=== PATIENT | female | born 1945 | race Caucasian/White ===

== ENCOUNTER 2018-02-17 16:27 | Observation (INO) ==
[2018-02-17 16:52] LABS: Baso # (Auto) 0.3 th/mm3 (0.0-0.2); Baso % (Auto) 4.8 % (0.0-2.0); Eos # (Auto) 0.2 th/mm3 (0.0-0.4); Eos % (Auto) 2.2 % (0.0-4.0); Hemoglobin 12.5 gm/dL (11.6-15.3); Lymph # (Auto) 2.3 th/mm3 (1.0-4.8); Lymph % (Auto) 32.1 % (9.0-44.0); Mean Corpuscular HGB Conc 33.7 % (32.0-36.0); Mean Corpuscular Hemoglobin 32.3 pg (27.0-34.0); Mean Corpuscular Volume 95.9 fL (80.0-100.0); Mean Platelet Volume 8.3 fL (7.0-11.0); Mono # (Auto) 0.5 th/mm3 (0.0-0.9); Mono % (Auto) 7.3 % (0.0-8.0); Neut # (Auto) 3.8 th/mm3 (1.8-7.7); Neut % (Auto) 53.6 % (16.0-70.0); Platelet Count 224 th/mm3 (150-450); Red Blood Count 3.86 mil/mm3 (4.00-5.30); Red Cell Distribution Width 13.6 % (11.6-17.2); White Blood Count 7.1 th/mm3 (4.0-11.0)
--- NOTE | 2018-02-17 17:02 | ED ---
HPI General Chief complaint: Chest Pain Stated complaint: Chest pain Time Seen by Provider: 02/17/18 16:30 Source: patient Mode of arrival: EMS Limitations: no limitations History of Present Illness HPI narrative: Patient is a 73 year old female brought in by EMS with complaints of chest pain. She says it started today while she was crafting. She says the pain is in the left side of her chest and is a "burning pain." She says it has happened in the past and she thought it was associated with anxiety, however, today it was different because she was completely relaxed. She says last night she seemed to be belching much more often. She has had generalized weakness for the past week. She denies fever or chills, cough or cold, nausea or vomiting. Severity is mild to moderate. Related Data Home Medications Medication Instructions Recorded Confirmed lisinopril 2.5 mg PO DAILY 02/17/18 02/17/18 Allergies Allergy/AdvReac Type Severity Reaction Status Date / Time codeine Allergy Severe GASTROENTER Verified 02/17/18 16:40 ITIS erythromycin base Allergy Severe VOMITING Verified 02/17/18 16:40 epinephrine Allergy Unknown A-fib Verified 02/17/18 16:40 azithromycin AdvReac Severe VOMITTING Verified 02/17/18 16:40 "VIOLENTLY" Tetanus Vaccines and Toxoid AdvReac Severe Hives Verified 02/17/18 16:40 "most antibiotics" Allergy Unknown Gastrointestinal Uncoded 02/17/18 16:40 Upset ashagwanda "supplement" AdvReac Unknown damage to Uncoded 08/28/16 13:18 right eye Review of Systems ROS: all other systems reviewed are negative Constitutional Denies chills and Denies fever(s) Cardiovascular Reports chest pain, Reports lightheadedness and Denies dyspnea Respiratory Denies cough Gastrointestinal Denies abdominal pain, Denies nausea and Denies vomiting Musculoskeletal Denies myalgias and Denies arthralgias Integumentary/Breasts Denies sores and Denies wounds Neurologic Denies focal weakness and Denies numbness [facility] Medical History Medical History Anxiety (Acute) Hx of hysterectomy (Acute) Surgical History Surgical History Hx of tonsillectomy (Acute) Social History Social History Substance History: No History of Abuse Second Hand Smoke Exposure: No Smoking Status: Unknown if ever smoked How Often Do You Have a Drink Containing Alcohol: Monthly or less Recent Travel in [facility] within the Last 8 Weeks: No Recent Out of Country Travel within the Last 8 Weeks: No Immunization History Tetanus Immunization: Unsure Exam Narrative Exam Narrative: GENERAL: Awake and alert, in no acute distress. SKIN: Focused skin assessment warm/dry. HEAD: Atraumatic. Normocephalic. EYES: Pupils equal and round. No scleral icterus. ENT: Mucous membranes pink and moist. NECK: Trachea midline. No JVD. CARDIOVASCULAR: Regular rate and rhythm. No murmur appreciated. Some tenderness to palpation of the left side of the chest. RESPIRATORY: No accessory muscle use. Clear to auscultation. Breath sounds equal bilaterally. GASTROINTESTINAL: Abdomen soft, non-tender, nondistended. MUSCULOSKELETAL: No obvious deformities. No clubbing. No cyanosis. No edema. NEUROLOGICAL: Awake and alert. No obvious cranial nerve deficits. Motor grossly within normal limits. Normal speech. PSYCHIATRIC: Appropriate mood and affect; insight and judgment normal. Course Initial Documented Vital Signs Temperature 98.2 F 02/17/18 16:33 Pulse Rate 77 02/17/18 16:33 Respiratory Rate 18 02/17/18 16:33 Blood Pressure 169/81 H 02/17/18 16:33 Pulse Oximetry 98 02/17/18 16:33 Last Documented Vital Signs Temperature 98.2 F 02/17/18 16:33 Pulse Rate 78 02/17/18 16:42 Respiratory Rate 18 02/17/18 16:33 Blood Pressure 169/81 H 02/17/18 16:33 Pulse Oximetry 98 02/17/18 16:42 Medical Decision Making MDM Narrative Medical decision making narrative: Patient is a 73 year old female who comes in complaining of left sided chest pain. Exam shows no acute abnormalities. IV established, labs sent, patient connected to the environmental monitoring specialist. Labs show no acute abnormalities. Troponin is negative. Patient received aspirin and nitro by EMS with improvement of her symptoms. She will be placed in the chest pain center for further management. Medical Screen Exam Complete: Yes Emergency Medical Condition: Yes Differential Diagnosis Differential Diagnosis: ACS vs NSTEMI vs STEMI Medical Records Medical records reviewed: Yes I reviewed the patient's medical records. Lab Data Lab results reviewed: Yes I reviewed the patient's lab results. Result diagrams: 02/17/18 16:30 02/17/18 16:30 Lab Results 02/17/18 02/17/18 02/17/18 Range/Units 16:30 16:30 16:30 CBC w Diff Auto diff final WBC 7.1 (4.0-11.0) th/mm3 RBC 3.86 L (4.00-5.30) mil/mm3 Hgb 12.5 (11.6-15.3) gm/dL Hct 37.0 (35.0-46.0) % MCV 95.9 (80.0-100.0) fL MCH 32.3 (27.0-34.0) pg MCHC 33.7 (32.0-36.0) % RDW 13.6 (11.6-17.2) % Plt Count 224 (150-450) th/mm3 MPV 8.3 (7.0-11.0) fL Neut % (Auto) 53.6 (16.0-70.0) % Lymph % (Auto) 32.1 (9.0-44.0) % [place] % (Auto) 7.3 (0.0-8.0) % Eos % (Auto) 2.2 (0.0-4.0) % Baso % (Auto) 4.8 H (0.0-2.0) % Neut # (Auto) 3.8 (1.8-7.7) th/mm3 Lymph # (Auto) 2.3 (1.0-4.8) th/mm3 [place] # (Auto) 0.5 (0.0-0.9) th/mm3 Eos # (Auto) 0.2 (0.0-0.4) th/mm3 Baso # (Auto) 0.3 H (0.0-0.2) th/mm3 WBC Differential . Differential Comment . PT 10.1 (9.8-11.6) sec INR 1.0 Ratio APTT 31.0 (23.4-31.7) sec Sodium 131 L (136-145) meq/L Potassium 3.6 (3.5-5.1) meq/L Chloride 94 L (98-107) meq/L Carbon Dioxide 28.5 (21.0-32.0) meq/L Anion Gap 9 (5-15) meq/L BUN 20 H (7-18) mg/dL Creatinine 0.95 (0.50-1.00) mg/dL Estimated GFR 58 L (>89) mL/min Random Glucose 85 (74-106) mg/dL Calcium 9.0 (8.5-10.1) mg/dL Total Bilirubin 0.4 (0.2-1.0) mg/dL AST 17 (15-37) U/L ALT 22 (10-53) U/L Alkaline Phosphatase 53 (45-117) U/L Total Creatine Kinase 147 (26-192) U/L CK-MB (CK-2) 2.3 (0.5-3.6) ng/mL Troponin I Less than 0.02 L (0.02-0.05) ng/mL Total Protein 6.5 (6.4-8.2) g/dL Albumin 3.8 (3.4-5.0) g/dL Lipase 121 (73-393) U/L Imaging Data Radiologist's impression: Chest X-Ray 02/17/18 16:37 CONCLUSION: No acute cardiopulmonary disease. ECG Data EKG Prior to Arrival: Yes Attestation: I personally reviewed and interpreted this ECG as follows: Interpretation: ECG shows NSR at a rate of 74, no ST elevation or depression, normal intervals. Discharge Plan Discharge Disposition Patient Disposition: 30 Still Patient Discharge Condition Condition: Stable Discharge Details Diagnosis: Chest pain Physicians Team ED Provider: Silvina Hyatt Primary Care Provider: Janes Garcia Rxs /Orders / Referrals /Forms Prescriptions: No Action lisinopril 2.5 mg Tablet 2.5 mg PO DAILY RF: 0 Discharge Instructions Patient Printed Instructions: Chest Pain (ED) Status ED Status: With Doctor
[2018-02-17 17:07] LABS: Chloride 94 meq/L (98-107); Potassium 3.6 meq/L (3.5-5.1); Sodium 131 meq/L (136-145)
--- NOTE | 2018-02-17 17:09 | XR ---
EXAM DATE: 02/17/2018 4:59 PM EST AGE/SEX: 73 years / Female INDICATIONS: Chest discomfort. CLINICAL DATA: This is the patient's initial encounter. Patient reports that signs and symptoms have been present for 1 day and indicates a pain score of 0/10. MEDICAL/SURGICAL HISTORY: None. None. COMPARISON: No prior exams available for comparison. FINDINGS: A single AP view of the chest demonstrates the lungs to be symmetrically aerated without evidence of mass, infiltrate or effusion. The cardiomediastinal contours are unremarkable. Osseous structures a re intact. CONCLUSION: No acute cardiopulmonary disease. Electronically signed by: Darian San MD 02/17/2018 5:08 PM EST
[2018-02-17 17:11] LABS: Albumin 3.8 g/dL (3.4-5.0); Anion Gap 9 meq/L (5-15); Blood Urea Nitrogen 20 mg/dL (7-18); Carbon Dioxide 28.5 meq/L (21.0-32.0); Glucose,Random 85 mg/dL (74-106); Lipase 121 U/L (73-393); Prothrombin Time 10.1 sec (9.8-11.6)
[2018-02-17 17:14] LABS: Alanine Aminotransferase 22 U/L (10-53); Aspartate Aminotransferase 17 U/L (15-37); Glomerular Filtration Rate 58 mL/min (>89)
[2018-02-17 17:15] LABS: Total Protein 6.5 g/dL (6.4-8.2)
[2018-02-17 17:17] LABS: Alkaline Phosphatase 53 U/L (45-117); Creatine Kinase 147 U/L (26-192)
[2018-02-17 17:29] LABS: Creatine Kinase MB 2.3 ng/mL (0.5-3.6)
[2018-02-17] MEDS ORDERED: Acetaminophen 500 MG Tablet PO PRN (18:43)
--- NOTE | 2018-02-17 18:43 | P.HP ---
History of Present Illness Primary Care Physician: Janes Garcia MD Chief Complaint: Chest pain History of Present Illness: 73-year-old female with known history of hypertension, anxiety who presented to hospital because of a single episode of chest discomfort. Patient states that she was sitting down doing crafts today at approximately 11 AM she had a sudden jolt-like pain in the left side of her chest which she describes as a thump which was 7/10 on a pain scale. Patient denies any radiation to neck , back, shoulder, arm. Patient denied any diaphoresis, nausea, vomiting, shortness of breath, dyspnea, lightheadedness, dizziness. Patient denies any previous cardiac workup. Patient has not had any subsequent chest discomfort or thumping sensation in her chest since that one episode. Patient did come to emergency department for evaluation. Original workup was unremarkable. It was recommended by the ER physician the patient be observed in the hospital in the chest pain center. - Diagnosis (1) Chest pain Review of Systems All other systems reviewed negative except as stated in HPI Cardiovascular: Reports chest pain PMFSH - History History Provided By: Patient - Medical History Medical History: Medical History (Last Updated 02/17/18 @ 18:40 by NGOC Burrell) Anxiety Hypertension - Surgical History Surgical History: Surgical History (Last Updated 02/17/18 @ 18:40 by NGOC Burrell) Hx of hysterectomy Hx of tonsillectomy - Family History Family History: Family History (Last Updated 02/17/18 @ 18:40 by NGOC Burrell) Father Family history of congestive heart failure - Tobacco History Second Hand Smoke Exposure: No Tobacco Use In Past 30 Days: No Smoking Status: Former smoker Number of Pack Years (if former smoker): 5 - Alcohol History How Often Do You Have a Drink Containing Alcohol: Monthly or less - Substance Use History Substance History: No History of Abuse - Travel History Recent Travel in the [place] Within the Last 8 Weeks: No Recent Travel Out of the Country Within the Last 8 Weeks: No - Immunization History Tetanus Immunization: Unsure Medications and Allergies Active Medications: Active Medications Sodium Chloride (Ns Flush) 2 ml IV.FLUSH UNSCH PRN PRN Reason: FLUSH AFTER USING IV ACCESS Allergies Allergy/AdvReac Type Severity Reaction Status Date / Time codeine Allergy Severe GASTROENTER Verified 02/17/18 16:40 ITIS erythromycin base Allergy Severe VOMITING Verified 02/17/18 16:40 epinephrine Allergy Unknown A-fib Verified 02/17/18 16:40 azithromycin AdvReac Severe VOMITTING Verified 02/17/18 16:40 "VIOLENTLY" Tetanus Vaccines and Toxoid AdvReac Severe Hives Verified 02/17/18 16:40 "most antibiotics" Allergy Unknown Gastrointestinal Uncoded 02/17/18 16:40 Upset ashagwanda "supplement" AdvReac Unknown damage to Uncoded 08/28/16 13:18 right eye Home Medications Medication Instructions Recorded Confirmed Type lisinopril 2.5 mg PO DAILY 02/17/18 02/17/18 History Exam Vital signs: Vital Signs 02/17/18 16:33 02/17/18 16:42 Temperature 98.2 F Pulse Rate 77 78 Respiratory Rate 18 Blood Pressure 169/81 H Pulse Oximetry 98 98 Intake & Output 02/16/18 02/17/18 02/17/18 18:59 06:59 18:59 Weight 64.41 kg Narrative: GENERAL: Well-developed, well-nourished, in no acute distress. alert and orientated HEENT: Head is normocephalic without any lesions or masses noted. Facial features are symmetric. Eyes: Pupils equal round reactive to light. Extraocular muscles are intact. Conjunctivae were clear. Oropharyngeal: Pharynx without any erythema edema. Tongue is midline without deviation. Buccal mucosa is moist without any masses or lesions NECK: Supple without any masses. Trachea midline no deviation. No JVD, no bruits are appreciated CARDIAC: Regular rhythm, regular rate. S1/S2 are heard. No murmurs gallops or rubs. LUNGS: Clear to auscultation bilaterally. No wheeze, rhonchi or rales. No use of accessory muscles on inspiration or expiration. ABDOMEN: Soft, nontender. Nondistended. Bowel sounds heard in all 4 quadrants. No organomegaly or masses. Negative rebound, negative guarding EXTREMITIES: No edema, pulses are equal bilaterally. No cyanosis or clubbing NEUROLOGY: Mood and affect appear appropriate. Cranial nerves II through XII grossly intact. Muscle strength 5/5 in upper and lower extremities bilaterally. Deep tendon reflexes are 2+ in upper and lower extremities bilaterally. Results - Labs CBC & Chem 7: 02/17/18 16:30 02/17/18 16:30 Labs: Laboratory Results - last 24 hr 02/17/18 02/17/18 02/17/18 16:30 16:30 16:30 CBC w Diff Auto diff final WBC 7.1 RBC 3.86 L Hgb 12.5 Hct 37.0 MCV 95.9 MCH 32.3 MCHC 33.7 RDW 13.6 Plt Count 224 MPV 8.3 Neut % (Auto) 53.6 Lymph % (Auto) 32.1 [place] % (Auto) 7.3 Eos % (Auto) 2.2 Baso % (Auto) 4.8 H Neut # (Auto) 3.8 Lymph # (Auto) 2.3 [place] # (Auto) 0.5 Eos # (Auto) 0.2 Baso # (Auto) 0.3 H WBC Differential . Differential Comment . PT 10.1 INR 1.0 APTT 31.0 Sodium 131 L Potassium 3.6 Chloride 94 L Carbon Dioxide 28.5 Anion Gap 9 BUN 20 H Creatinine 0.95 Estimated GFR 58 L Random Glucose 85 Calcium 9.0 Total Bilirubin 0.4 AST 17 ALT 22 Alkaline Phosphatase 53 Total Creatine Kinase 147 CK-MB (CK-2) 2.3 Troponin I Less than 0.02 L Total Protein 6.5 Albumin 3.8 Lipase 121 - Imaging Impressions Chest X-Ray 02/17/18 16:37 CONCLUSION: No acute cardiopulmonary disease. Caprini VTE Risk Assessment Caprini VTE Risk Assessment: Moderate/High Risk (score >= 2) Caprini Risk Assessment Model: Point Value = 1 Point Value = 2 Point Value = 3 Point Value = 5 Age 41-60 Minor surgery BMI > 25 kg/m2 Swollen legs Varicose veins or History of unexplained or recurrent spontaneous Oral contraceptives or hormone replacement Sepsis (< 1 month) Serious lung disease, including pneumonia (< 1 month) Abnormal pulmonary function Acute myocardial infarction Congestive heart failure (< 1 month) History of inflammatory bowel disease Medical patient at bed rest Age 61-74 Arthroscopic surgery Major open surgery (> 45 min) Laparoscopic surgery (> 45 min) Malignancy Confined to bed (> 72 hours) Immobilizing plaster cast Central venous access Age >= 75 History of VTE Family history of VTE Factor V Leiden Prothrombin [id number] Lupus anticoagulant Anticardiolipin antibodies Elevated serum homocysteine Heparin-induced thrombocytopenia Other congenital or acquired thrombophilia Stroke (< 1 month) Elective arthroplasty Hip, pelvis, or leg fracture Acute spinal cord injury (< 1 month) Prophylaxis Regimen: Total Risk Factor Score Risk Level Prophylaxis Regimen 0-1 Low Early ambulation 2 Moderate Order ONE of the following: *Sequential Compression Device (SCD) *Heparin 5000 units SQ BID 3-4 Higher Order ONE of the following medications: *Heparin 5000 units SQ TID *Enoxaparin/Lovenox 40 mg SQ daily (WT < 150 kg, CrCl > 30 mL/min) *Enoxaparin/Lovenox 30 mg SQ daily (WT < 150 kg, CrCl > 10-29 mL/min) *Enoxaparin/Lovenox 30 mg SQ BID (WT < 150 kg, CrCl > 30 mL/min) AND/OR *Sequential Compression Device (SCD) 5 or more Highest Order ONE of the following medications: *Heparin 5000 units SQ TID (Preferred with Epidurals) *Enoxaparin/Lovenox 40 mg SQ daily (WT < 150 kg, CrCl > 30 mL/min) *Enoxaparin/Lovenox 30 mg SQ daily (WT < 150 kg, CrCl > 10-29 mL/min) *Enoxaparin/Lovenox 30 mg SQ BID (WT < 150 kg, CrCl > 30 mL/min) AND *Sequential Compression Device (SCD) Assessment and Plan - Assessment (1) Chest pain Code(s): R07.9 - Chest pain, unspecified Status: Acute - Plan Chest pain, atypical -Patient does have increased risk factors include age, post menopausal without exogenous hormones, hypertension, family history of heart disease, history of tobacco use -Currently the patient does not have any acute coronary event. Serial cardiac enzymes are negative, initial EKG is reviewed by myself and shows normal sinus rhythm without any acute abnormalities -We will continue to trend cardiac enzymes and EKGs -The patient is ruled out for acute coronary event will anticipate exercise stress test in the morning -Continue aspirin, nitroglycerin as needed Hypertension -Continue home medications DVT prevention -Sequential compression devices (1) Chest pain Qualifiers: Chest pain type: unspecified Qualified Code(s): R07.9 - Chest pain, unspecified
[2018-02-17 20:18] LABS: Creatine Kinase 139 U/L (26-192)
[2018-02-17 22:58] LABS: Creatine Kinase 129 U/L (26-192)
[2018-02-18 06:31] VITALS: TEMP 96.1
--- NOTE | 2018-02-18 08:03 | P.PNIM ---
Subjective Interval history: Patient seen and examined today for follow-up on chest pain. Patient has not had any recurrent chest discomfort since being in the hospital. Patient denies any new complaints. Vital signs show mildly elevated blood pressure, will address. Patient remains afebrile. Physical Exam Vital signs: Vital Signs 02/17/18 16:33 02/17/18 16:42 02/17/18 20:00 Temperature 98.2 F 96 F L Pulse Rate 77 78 65 Respiratory Rate 18 20 Blood Pressure 169/81 H 173/75 H Pulse Oximetry 98 98 100 02/18/18 00:00 02/18/18 04:00 Temperature 96.2 F L 96.1 F L Pulse Rate 60 67 Respiratory Rate 20 20 Blood Pressure 143/69 H 155/70 H Pulse Oximetry 98 100 Intake & Output 02/17/18 02/18/18 02/18/18 18:59 06:59 18:59 Intake Total 0 / 0 Balance 0 / 0 Weight 64.41 kg 64.5 kg Intake: Oral 0 / 0 Other: # Voids 1 Weight On Admission 61 kg Narrative: GENERAL: Well-developed, well-nourished, in no acute distress. alert and orientated HEENT: Head is normocephalic without any lesions or masses noted. Facial features are symmetric. Eyes: Extraocular muscles are intact. Conjunctivae were clear. NECK: Supple without any masses. Trachea midline no deviation. No JVD, CARDIAC: Regular rhythm, regular rate. S1/S2 are heard. No murmurs gallops or rubs. LUNGS: Clear to auscultation bilaterally. No wheeze, rhonchi or rales. No use of accessory muscles on inspiration or expiration. ABDOMEN: Soft, nontender. Nondistended. Bowel sounds heard in all 4 quadrants. No organomegaly or masses. Negative rebound, negative guarding EXTREMITIES: No edema, pulses are equal bilaterally. No cyanosis or clubbing NEUROLOGY: Mood and affect appear appropriate. Cranial nerves II through XII grossly intact. Moving all extremities, speech is clear Results - Labs CBC & Chem 7: 02/17/18 16:30 02/17/18 16:30 Laboratory Results - last 24 hr 02/17/18 02/17/18 02/17/18 16:30 16:30 16:30 CBC w Diff Auto diff final WBC 7.1 RBC 3.86 L Hgb 12.5 Hct 37.0 MCV 95.9 MCH 32.3 MCHC 33.7 RDW 13.6 Plt Count 224 MPV 8.3 Neut % (Auto) 53.6 Lymph % (Auto) 32.1 [place] % (Auto) 7.3 Eos % (Auto) 2.2 Baso % (Auto) 4.8 H Neut # (Auto) 3.8 Lymph # (Auto) 2.3 [place] # (Auto) 0.5 Eos # (Auto) 0.2 Baso # (Auto) 0.3 H WBC Differential . Differential Comment . PT 10.1 INR 1.0 APTT 31.0 Sodium 131 L Potassium 3.6 Chloride 94 L Carbon Dioxide 28.5 Anion Gap 9 BUN 20 H Creatinine 0.95 Estimated GFR 58 L Random Glucose 85 Calcium 9.0 Total Bilirubin 0.4 AST 17 ALT 22 Alkaline Phosphatase 53 Total Creatine Kinase 147 CK-MB (CK-2) 2.3 Troponin I Less than 0.02 L Total Protein 6.5 Albumin 3.8 Lipase 121 02/17/18 02/17/18 19:38 22:27 CBC w Diff WBC RBC Hgb Hct MCV MCH MCHC RDW Plt Count MPV Neut % (Auto) Lymph % (Auto) [place] % (Auto) Eos % (Auto) Baso % (Auto) Neut # (Auto) Lymph # (Auto) [place] # (Auto) Eos # (Auto) Baso # (Auto) WBC Differential Differential Comment PT INR APTT Sodium Potassium Chloride Carbon Dioxide Anion Gap BUN Creatinine Estimated GFR Random Glucose Calcium Total Bilirubin AST ALT Alkaline Phosphatase Total Creatine Kinase 139 129 CK-MB (CK-2) Troponin I Less than 0.02 L Less than 0.02 L Total Protein Albumin Lipase - Imaging Impressions Chest X-Ray 02/17/18 16:37 CONCLUSION: No acute cardiopulmonary disease. Assessment and Plan - Assessment (1) Chest pain Code(s): R07.9 - Chest pain, unspecified Status: Acute - Plan Chest pain, atypical -Patient does have increased risk factors include age, post menopausal without exogenous hormones, hypertension, family history of heart disease, history of tobacco use -Patient has been ruled out for acute coronary event with serial cardiac enzymes that have remained negative -Serial EKGs were reviewed by myself and shows sinus rhythm without any changes -Exercise stress test was performed and indicated normal exam, no signs of ischemia -Continue aspirin, nitroglycerin as needed Hypertension -Patient blood pressure has been running mildly elevated -Increase to lisinopril 5 mg daily DVT prevention -Sequential compression devices Discharge Planning: Discharge home in stable condition Activity: Ad radha. Diet: Healthy heart diet Medication per medication reconciliation Follow-up with primary medical doctor in 1 week (1) Chest pain Qualifiers: Chest pain type: unspecified Qualified Code(s): R07.9 - Chest pain, unspecified
[2018-02-18] MEDS ORDERED: Aspirin 325 MG Tablet PO SCH (09:00)
[2018-02-18] MEDS ORDERED: Lisinopril 5 MG Tablet PO SCH ×2 (09:00)
[2018-02-18 09:54] VITALS: BP 135/65; PULSE 62; RESP 16; O2SAT 98
--- NOTE | 2018-02-18 10:05 | TR ---
Date Performed: 02/18/2018 Time Performed: 08:41:32 DOCTOR: Emigdio Jones DRUG LIST: CLINICAL HISTORY: REASON FOR TEST: REASON FOR ENDING: Fatigue Completed Protocol OBSERVATION: Arrhythmia: None Chest Pain: None CONCLUSION: Patient tolerated SUL[place] protocol with Total Exercise Time=4:30 Maximum LK=654 % Targ et HR [id number]=835.0%, Testing stopped secondary to goal HR acheived and patient fatigue. Patient was asymptomatic during procedure, during peak exercise, upsloping ST segments, ST depressions noted in inferior/lateral leads. HR and BP appropriate response to exercise, Recovery period, HR amd BP return ed to baseline COMMENTS: Conclusion: Normal treadmill exercise. No evidence of ischemia. all upsloping ST segm ents.
--- NOTE | 2018-02-18 13:36 | ECG ---
Date Performed: 02/17/2018 Time Performed: 22:24:14 PTAGE: 73 years EKG: Sinus rhythm NORMAL ECG PREVIOUS TRACING : 02/17/2018 19.49 Since previous tracing, no significant change noted DOCTOR: Emigdio Jones Interpretating Date/Time 02/18/2018 13:34:10
--- NOTE | 2018-02-18 13:36 | ECG ---
Date Performed: 02/17/2018 Time Performed: 19:49:10 PTAGE: 73 years EKG: Sinus rhythm NORMAL ECG PREVIOUS TRACING : 02/17/2018 16.28 Since previous tracing, no significant change noted DOCTOR: Emigdio Jones Interpretating Date/Time 02/18/2018 13:34:48
--- NOTE | 2018-02-18 13:36 | ECG ---
Date Performed: 02/17/2018 Time Performed: 16:28:09 PTAGE: 73 years EKG: Sinus rhythm NORMAL ECG PREVIOUS TRACING : 03/08/2014 08.59 Since previous tracing, no significant change noted DOCTOR: Emigdio Jones Interpretating Date/Time 02/18/2018 13:35:17
== END 2018-02-18 10:47 | disposition home or self-care (01) ==
LOC: PHEDA 16:27 → PHED 16:27 → PH3 20:16
PROVIDERS: ADMIT Hospitalist; ATTEND Hospitalist